=== PATIENT | male | born 1940 | race Caucasian/White ===

== ENCOUNTER → 2023-02-10 | Emergency (ER) | payer SELFPAY ==
[~2023-02-10] VITALS: Ht 185.4 cm; Wt 113.4 kg
[~2023-02-10] MED LIST: MAGNESIUM SULFATE 2 GM in IV DEXTROSE 5% 100 ML IV ONE; METOPROLOL TARTRATE 5 MG/5 ML VIAL IVP ONE; METOPROLOL TARTRATE 50 MG TABLET PO ONE; NITROGLYCERIN OINT 1 GM PACKET TP ONE
--- NOTE | 2023-02-10 01:10 | NUR ---
Patient stating he no longer has chest pain. Patient stated, "I need to leave right now before [employer] takes my stuff away". Patient educated on the importance of staying in the hospital for medical examination. Patient refusing to stay in the hospital. Dr. Foley notified.
--- NOTE | 2023-02-10 01:12 | NUR ---
IV removed. Catheter intact and site benign. Pressure and 4x4 gauze applied to site. No bleeding noted.
--- NOTE | 2023-02-10 01:15 | NUR ---
Patient does not wish to proceed with medical care recommended by Dr. Foley. Patient given information related to possible complications, up to and including , which could occur as a result of leaving the hospital at this time. Patient verbalizes understanding of risks involved due to leaving against medical advice. Patient has signed AMA form.
[2023-02-10 01:19] VITALS: BP 140/78
== END | disposition home or self-care (01) ==
LOC: ER 01:03
DX: R07.89 Other chest pain (principal)
CPT/HCPCS: 99283; 93005; J3475; A4663